=== PATIENT | female | born 1985 | race Hispanic/Latino ===

== ENCOUNTER 2021-11-05 17:08 | Emergency (ER) | payer BC, OTHER ==
--- OUTSIDE RECORDS SUMMARY | 2021-11-05 17:12 | XMS REPORT | Continuity of Care Document ---
:1985 Author Organization [facility] t Address [address] [place] [address] Dr. [address]. [address] [place] [address] Care Team Providers Name Role Phone Pcp, Patient Does Not Have A Primary Care Physician [id number] Garth Domínguez Attending Clinician Unavailable Nurse, Rohan Mariano [facility] Attending Clinician Unavailable Concetta Ahmadi MD Attending Clinician CONCETTA AHMADI Attending Clinician Unavailable Doctor Unassigned, [place] Attending Clinician Unavailable JENNIFER Attending Clinician Unavailable ProviderRohan Urgent Care Attending Clinician Unavailable Amy Marcelo Attending Clinician AMY POSADA Attending Clinician Unavailable Osiel Attending Clinician Unavailable JENNIFER Admitting Clinician Unavailable Osiel Admitting Clinician Unavailable Payers Payer Name Policy Type Policy Number Effective Date Expiration Date Jessica funes STARLA (EPO) [id number] 2020 00:00:00 [facility] [id number] 2018 00:00:00 Problems Condition Condition Condition Status Onset Resolution Last Treating Co mments Source Name Details Category Date Date Treatment Clinician Date Crohn's Crohn's Problem Active [place] disease Disease 06 da 00:00: Medical 00 Group No known No known Disease Unive rs active active ity of problems problems [facility] Allergies, Adverse Reactions, Alerts Allergy Allergy Status Severity Reaction(s) Onset Inactive Treating Comm ents Source Name Type Date Date Clinician Levoflox Drug Active Nausea Univers acin Allergy and/or 6-13 ity of Vomiting 00:00: [place] 00 Medical Branch Sulfa Drug Active Hives Univers (Sulfona Allergy 6-13 ity of mide 00:00: [place] Antibiot 00 Medical ics) Branch LEVOFLOX DRUG Active High N/V Univers ACIN INGREDI 6-13 ity of 00:00: [place] 00 Medical Branch SULFA Drug Active High Hives Univers (SULFONA Class 6-13 ity of MIDE 00:00: [place] ANTIBIOT 00 Medical ICS) Branch Sulfa Drug Active Hives Univers (Sulfona Allergy 6-13 ity of mide 00:00: [place] Antibiot 00 Medical ics) Branch Bactrim Allergy Active Hives [place] to [facility] substan Medical e Group Levaquin Allergy Active Nausea [place] [facility] Levaquin Adverse Active "severe" n/v C ommon Reaction [facility] NO KNOWN Drug Active Univers ALLERGIE Class ity of S [facility] Social History Social Habit Start Date Stop Date Quantity Comments Source History SDOH University o f Alcohol Frequency [facility] edical Branch History SDOH University o f Alcohol Std [place] [facility] Drinks Branch History [facility] University o f Alcohol Binge [place] Medic al Branch Exposure to 2021-10-26 2021-11-05 Not sure [facility] SARS-CoV-2 00:00:00 16:32:00 [facility] (event) [place] Alcohol intake 2021-11-05 2021-11-05 .43 /d University of 00:00:00 00:00:[address] [facility] Tobacco use and 2020-07-23 2020-07-23 Smokeless tobacco Un iversity of exposure 00:00:00 00:00:00 non-user [facility] Alcohol Comment 2020-07-23 2020-07-23 nightly Universit y of 00:00:00 00:00:[address] [facility] Sex Assigned At [birth year] Universit y of 00:00:00 00:00:[address] [facility] Smoking Status Start Date Stop Date Source Unknown if ever smoked Universit y of [facility] Never smoked tobacco [facility] Medications Ordered Filled Start Stop Current Ordering Indication Dosage Frequency Signature Comments Components Source Medication Medication Date Date Medication? Clinician (SIG) Name Name amitriptyli Yes [id number] 1-2 tab at Univers ne 25 mg 6-13 bedtime to ity o f tablet 00:00: relax [place] 00 muscles. Medical Branch acetaminoph Yes [id number] 2 - Uni vers en-codeine 6-13 tab Every ity of 300-30 mg 00:00: 4hrs as [place] tablet 00 needed for Medical pain or Branch cough requiring narcotic Indication s: acute pain amitriptyli Yes [id number] 1-2 tab at Univers ne 25 mg 6-13 bedtime to ity o f tablet 00:00: relax [place] 00 muscles. Medical Branch acetaminoph Yes 4647 02/11 Uni vers en-codeine 6-13 tab Every ity of 300-30 mg 00:00: 4hrs as [place] tablet 00 needed for Medical pain or Branch cough requiring narcotic Indication s: acute pain amitriptyli Yes [id number] 1-2 tab at Univers ne 25 mg 6-13 bedtime to ity o f tablet 00:00: relax [place] 00 muscles. Medical Branch acetaminoph Yes 4647 02/11 Uni vers en-codeine 6-13 tab Every ity of 300-30 mg 00:00: 4hrs as [place] tablet 00 needed for Medical pain or Branch cough requiring narcotic Indication s: acute pain valACYclovi 202- No [id number] 1000mg Take 2 Univers r 500 mg 6-13 06-21 tablets by ity of tablet 00:00: 04:59 mouth 3 [place] 00 :00 (three) Medical times Branch daily for 7 days. Fluticasone Fluticasone 2019-0 Yes Garth 1 Common Propionate Propionate 1-20 Domínguez applicatio Spirit 00:00: n - [facility] fluticasone fluticasone No fluticason [place] propionate propionate e da 0.005 % 0.005 % propionate Med ical topical topical 0.005 % Group ointment ointment topical ointment Mirena 20 Mirena 20 No 1device Mirena 20 [place] mcg/24 mcg/24 (s) mcg/24 da hours (6 hours (6 hours (6 Med ical yrs) 52 mg yrs) 52 mg yrs) 52 mg Group intrauterin intrauterin intrauteri e device e device ne device Take 1 Take 1 Take 1 device by device by device by intrauterin intrauterin intrauteri e route. e route. ne route. pantoprazol pantoprazol No pantoprazo [place] e 40 mg e 40 mg le 40 mg da tablet,carlos tablet,carlos tablet,del Medical yed release yed release ayed G roup TAKE 1 TAKE 1 release TABLET BY TABLET BY TAKE 1 MOUTH ONCE MOUTH ONCE TABLET BY DAILY FOR DAILY FOR MOUTH ONCE 30 DAYS 30 DAYS DAILY FOR 30 DAYS Vital Signs Vital Name Observation Time Observation Value Comments Source Diastolic blood 2021-11-05 21:15:00 100 mm[Hg] [facility] Body temperature 2021-11-05 21:15:00 37.83 Shy [facility] Systolic blood 2021-11-05 21:15:00 140 mm[facility]Hg] [facility] Heart rate 2021-11-05 21:14:00 95 /min [facility] Respiratory rate 2021-11-05 21:14:00 20 /min [facility] Body height 2021-11-05 21:14:00 157.5 cm [facility] Body weight 2021-11-05 21:14:00 67.586 kg [facility] BMI 2021-11-05 21:14:00 27.25 kg/m2 [facility] Oxygen saturation in 2021-11-05 21:14:00 100 /min [facility] Arterial blood by [facility] Pulse oximetry Branch Systolic blood 2020-07-23 18:06:00 126 mm[Hg] [facility] Diastolic blood 2020-07-23 18:06:00 86 mm[Hg] Unive [facility] Heart rate 2020-07-23 18:06:00 86 /min [facility] Body temperature 2020-07-23 18:06:00 37 Shy [facility] Respiratory rate 2020-07-23 18:06:00 18 /min [facility] Body height 2020-07-23 18:06:00 157.5 cm [facility] [place] Body weight 2020-07-23 18:06:00 68.266 kg [facility] BMI 2020-07-23 18:06:00 27.53 kg/m2 [facility] Oxygen saturation in 2020-07-23 18:06:00 97 /min University Arterial blood by [facility] Pulse oximetry Branch BP Diastolic 2020-03-08 00:00:00 82 mm[Hg] [facility] Height 2020-03-08 00:00:00 62 [in_i] [facility] BMI (Body Mass 2020-03-08 00:00:00 27.8 kg/m2 [facility] [employer] [facility]) Group BP Systolic 2020-03-08 00:00:00 114 mm[Hg] [facility] Body Weight 2020-03-08 00:00:00 152.2 [lb_av] [facility] Height 2019-12-08 00:00:00 62 [in_i] [facility] BMI (Body Mass 2019-12-08 00:00:00 28.7 kg/m2 [facility] [employer] [facility] Body Weight 2019-12-08 00:00:00 156.9 [lb_av] [facility] BP Diastolic 2019-11-24 00:00:00 80 mm[Hg] [facility] Height 2019-11-24 00:00:00 62 [in_i] [facility] BMI (Body Mass 2019-11-24 00:00:00 27.8 kg/m2 [facility] [employer] [facility] BP Systolic 2019-11-24 00:00:00 126 mm[Hg] [facility] Body Weight 2019-11-24 00:00:00 151.9 [lb_av] [facility] BP Diastolic 2019-02-22 00:00:00 87 mm[Hg] [facility] Height 2019-02-22 00:00:00 62 [in_i] [facility] BMI (Body Mass 2019-02-22 00:00:00 27.6 kg/m2 [facility] [employer] [facility] Group BP Systolic 2019-02-22 00:00:00 126 mm[Hg] [facility] Body Weight 2019-02-22 00:00:00 151 [lb_av] [facility] Height 2019-02-15 00:00:00 62 [in_i] [facility] BMI (Body Mass 2019-02-15 00:00:00 27.6 kg/m2 [facility] Body Weight 2019-02-15 00:00:00 151 [lb_av] [facility] Procedures Procedure Date / Time Performing Clinician Source Performed CONSENT/REFUSAL FOR 2021-11-05 20:59:37 Doctor Unassigned, No [facility] DIAGNOSIS AND TREATMENT Name Medical Branch ASSIGNMENT OF BENEFITS 2020-07-23 18:01:44 Doctor Unassigned, No [facility] Name Medical Branch US, transvaginal 2019-12-08 00:00:00 [facility] US, pelvis 2019-11-24 00:00:00 [facility] US, transvaginal 2019-11-24 00:00:00 [facility] US, transvaginal 2019-02-22 00:00:00 [facility] Encounters Start End Encounter Admission Attending Care Care Encounter Source Date/Time Date/Time Type Type Clinicians Facility Department ID 2021-03-07 Outpatient Domínguez, [facility] [id number] Common 14:26:50 Garth 20904 [facility] 2021-03-07 Outpatient Domínguez, [facility] [id number] Common 14:21:04 Garth 54125 [facility] 2021-03-07 [facility], [facility] [id number] Common 14:08:55 Garth 89805 [facility] 2021-03-07 Outpatient Domínguez, [facility] [id number] Common 14:08:03 Garth 67409 [facility] 2021-03-07 Outpatient [facility], [facility] [id number] Common 12:03:11 Garth 11462 [facility] 2021-03-07 Outpatient Domínguez, STLMLC STLMLC [id number] Common 12:02:57 Garth 44333 [facility] 2021-03-07 Outpatient Domínguez, STLMLC STLMLC [id number] Common 11:17:42 Garth 52221 [facility] 2021-03-07 Outpatient Domínguez, STLMLC STLMLC [id number] Common 11:01:12 Garth 33028 [facility] 2021-11-05 2021-11-05 Nurse Nurse, Rohan Mariano [facility] [id number] Univers 15:40:00 16:00:00 Visit [facility] [id number] ity [facility] [id number] Gómez as GEOVANY?BLEA [phone] [address] MEDICAL OFFICE BUILDING 2021-11-05 2021-11-05 Outpatient R [facility] [id number] Univers 15:40:00 15:40:00 [facility] 2021-11-05 2021-11-05 Orders Doctor NELLY [id number] Univers 00:00:00 00:00:00 Only Unassigned, [place] [id number] ity of [place] [facility] [id number] Gómez as [phone] [address] 2021-08-21 2021-08-21 Outpatient JENNIFER CURRY [facility] 703 [place] 05:01:00 05:01:00 HN 0712 da [facility] Outre h Program 2021-06-15 2021-06-15 ambulatory STLMLC STLMLC [id number] Common 00:00:00 00:00:00 [facility] 2021-06-05 2021-06-05 ambulatory STLMLC STLMLC [id number] Common 00:00:00 00:00:00 [facility] 2021-01-30 2021-01-30 ambulatory STLMLC STLMLC [id number] Common 00:00:00 00:00:00 [facility] 2021-01-08 2021-01-08 ambulatory STLMLC STLMLC [id number] Common 00:00:00 00:00:00 [facility] 2020-12-22 2020-12-22 Outpatient JENNIFER CURRY PATRICIO 703 [place] 11:33:00 11:33:00 HN 1112 da [facility] Outre h Program 2020-07-23 2020-07-23 Urgent Provider, Ang [facility] [id number] Univers 13:02:42 13:22:42 [facility] [id number] [facility] [id number] Gómez as Professio [id number] [address] Office [facility] 2020-07-23 2020-07-23 Outpatient Shaina POSADA [facility] [id number] Univers 13:00:00 13:00:00 [facility] 2020-07-23 2020-07-23 Orders Doctor NELLY [id number] [facility] 00:00:00 00:00:00 Only Unassigned, [place] [id number] ity [facility] [id number] Gómez as [id number] [address] 2020-04-01 2020-04-01 Outpatient Nick_L MMG MM [id number] [place] 01:03:00 01:03:00 0220 Medical Group 2020-03-08 2020-03-08 [place] Romero_[place]G [place] - [id number] 021 [place] 00:00:00 00:00:00 Milan Jurado 0127 Yg Perea MD: [address] [place] [address] [facility] [address], [place] [address] , Ph. [phone] 2020-02-26 2020-02-26 Outpatient Nick_L MMG MMG 5028 [place] 01:05:00 01:05:00 0116 [facility] 2020-01-22 2020-01-22 Outpatient Rutledge_L MMG MMG 5028 [place] 01:05:00 01:05:00 1212 [facility] 2019-12-29 2019-12-29 Outpatient Rutledge_L MMG MMG 5028 [place] 02:20:00 02:20:00 1118 [facility] 2019-12-20 2019-12-20 Outpatient STLMLC STLMLC [id number] Common 00:00:00 00:00:00 [facility] 2019-12-18 2019-12-18 Outpatient Rutledge_L MMG MMG 5028 [place] 01:05:00 01:05:00 1107 [facility] 2019-12-09 2019-12-09 Outpatient Rutledge_L MMG MMG 5028 [place] 10:50:00 10:50:00 1029 [facility] 2019-12-08 2019-12-08 Outpatient STLMLC STLMLC [id number] Common 00:00:00 00:00:00 [facility] 2019-12-08 2019-12-08 [place] Rutledge_[place] - [id number] 020 [place] 00:00:00 00:00:00 Milan Jurado 1028 mitzi Romero Medical Medicadin cintron MD: [address] [place], [place] [id number] , Ph. [phone] 2019-12-05 2019-12-05 Outpatient Rutledge_L MMG MMG 5028 [place] 03:25:00 03:25:00 1025 [facility] 2019-11-24 2019-11-24 Lo Rutledge_L MMG [place] - [id number] 020 [place] 00:00:00 00:00:00 Milan Jurado 1014 Yg Perea Medicadin cintron MD: [address] [id number] , Ph. [phone] 2019-10-29 2019-10-29 Outpatient Rutledge_L MMG MMG 5028 [place] 05:03:00 05:03:00 0918 da Medical Group 2019-04-23 2019-04-23 Outpatient Rutledge_L MMG MMG 5028 [place] 11:15:00 11:15:00 0313 Medical Group 2019-04-14 2019-04-14 Outpatient Rutledge_L MMG MMG 5028 [place] 10:38:00 10:38:00 0304 Medical Group 2019-03-16 2019-03-16 Outpatient Rutledge_L MMG MMG 5028 [place] 09:43:00 09:43:00 0204 Medical Group 2019-03-10 2019-03-10 Outpatient Rutledge_L MMG MMG 5028 [place] 12:06:00 12:06:00 0129 Medical Group 2019-03-01 2019-03-01 Outpatient [facility] [id number] Common 09:26:00 09:26:[address] [facility] it [address] [facility] 2019-02-25 2019-02-25 Outpatient [facility] [id number] Common 13:45:00 13:45:[address] [facility] it [facility] 2019-02-24 2019-02-24 Outpatient Rutledge_L MMG MMG 5028 [place] 12:04:00 12:04:00 0115 Medical Group 2019-02-22 2019-02-22 Lo Rutledge_L MMG [place] - [id number] 020 [place] 00:00:00 00:00:00 Milan Jurado 0113 mitzi Romero Medical Medicadin cintron MD: 600 [facility] [address], [place] [address] , Ph. [phone] 2019-02-16 2019-02-16 Outpatient Rutledge_L MMG MMG 5028 [place] 04:26:00 04:26:00 0107 Medical [facility] 2019-02-15 2019-02-15 Lo Rutledge_[place] MMG [place] - [id number] 020 [place] 00:00:00 00:00:00 Milan Jurado 0106 mitzi Romero Medical Medicadin cintron MD: 600 [facility] [address], [place] [address] , Ph. [phone] 2018-12-09 2018-12-09 Out[facility] [id number] Common 07:08:00 07:08:00 t [place] [employer] [address] it [address] [facility] 2018-11-30 2018-11-30 Outpatient [facility] [id number] Common 14:00:00 14:00:[address] [facility] 2018-10-01 2018-10-01 Outpatient [facility] [id number] Common 09:47:00 09:47:00 t Urgent Urgent Care S pirit Care [facility] 2018-09-28 2018-09-28 Outpatient [facility] [id number] Common 18:06:00 18:06:00 t Urgent Urgent Care S pirit Care [facility] 2018-09-28 2018-09-28 Outpatient [facility] [id number] Common 17:45:00 17:45:00 t Urgent Urgent Care S pirit Care [facility] 2018-09-15 2018-09-15 Outpatient [facility] [id number] Common 11:00:00 11:00:00 t [place] [employer] [address] it [address] [facility] 2017-11-26 2017-11-26 Outpatient [facility] [id number] Common 14:00:00 14:00:00 t [employer] [place] Sp[address] it Drive [facility] Results Test Description Test Time Test Comments Results Result Sour e Comments HIV 1+2 Ab 2019-02-15 HIV P24 [place] [Presence] in 03:30:00 AgHIV-1/2 Ab Medical G roup Serum Reagin Ab [Presence] in Serum by [facility] 2019-02-15 03:30:00 Test Item Value Reference Range Interpretation Comme nts Reagin Ab [Presence] in Serum by [facility] (test code = nonreactive nonr eactive 22945-2) [facility] GroupHepatitis B virus surface Ag [Presence] in Serum 2019-02-15 03:30:00 Test Item Value Reference Range Interpretation Comments .hepatitis B surface antigen (test negative negative code = .hepatitis B surface antigen) [facility]
[2021-11-05 18:38] LABS: Urine Blood Trace-intact (Negative); Urine Glucose Negative (Negative); Urine Protein Negative (Negative); Urine Specific Gravity 1.015 (1.005-1.030)
[2021-11-05] MEDS ORDERED: NA CHLORIDE 0.9% 1,000 ML ONE (18:40)
[2021-11-05 18:47] LABS: Urine Specific Gravity/Preg 1.015 (1.005-1.030)
[2021-11-05 19:12] LABS: Absolute Lymphocytes (CBC) 2.7 K/uL (0.7-4.9); Lymphocytes % 25.7 % (15.3-44.8); MCV 77.3 fL (80-100); MPV 8.4 fL (7.6-11.3); RBC Red Blood Cell Count 5.56 M/uL (3.86-4.86)
[2021-11-05 19:22] LABS: Potassium 3.5 mmol/L (3.5-5.1)
[2021-11-05] MEDS ORDERED: METOCLOPRAMIDE 10 MG/2mL INJ ONE (20:18)
[2021-11-05] MEDS ORDERED: NA CHLORIDE 0.9% 100 ML ONE (20:18)
[2021-11-05] MEDS ORDERED: DIPHENHYDRAMINE 50 MG/ML VIAL ONE (20:19)
--- NOTE | 2021-11-05 20:51 | RAD REPORT ---
EXAM DESCRIPTION: CT - Head Brain Wo Cont - 11/05/2021 8:35 pm CLINICAL HISTORY: Headache, sudden, severe COMPARISON: Head angio dated 11/05/2021 TECHNIQUE: Axial 5 mm thick images of the head were obtained without IV contrast. All CT scans are performed using dose optimization technique as appropriate and may include automated exposure control or mA/KV adjustment according to patient size. FINDINGS: No intracranial hemorrhage is present. There is a 2.5 centimeter diameter area of diminish ed attenuation in the medial inferior right cerebellum extending into the vermis. Evaluation of the b rainstem is limited. Posterior fossa assessment overall is limited. No midline shift. No focal cerebral abnormality. Ventricles are normal. No cortical edema or sulcal e ffacement. Delete select Mastoid air cells and visualized portions of the paranasal sinuses are clear. No acute bony findings. IMPRESSION: Proximally 2.5 centimeter area of decreased attenuation in the medial inferior right cer ebellum extending into the vermis. Subacute nonhemorrhagic infarction is favored over mass.
--- NOTE | 2021-11-05 20:56 | RAD REPORT ---
EXAM DESCRIPTION: CT - Neck Angio - 11/05/2021 8:35 pm CLINICAL HISTORY: neck pain right sided, occipital headache TECHNIQUE: During dynamic enhancement using nonionic IV contrast, axial 2 mm thick images of the nec k were obtained. Sagittal and axial reconstruction images were generated using MIP technique and revi ewed. All CT scans are performed using dose optimization technique as appropriate and may include automated exposure control or mA/KV adjustment according to patient size. COMPARISON: CT head same date FINDINGS: No aneurysm or vascular malformation identified. No carotid or left vertebral artery diss ection. Left vertebral artery is dominant. Irregular narrowing of the right vertebral artery is present from where the vertebral artery enters t he C6 transverse foramen extending superiorly to the C3 transverse foramen. Vertebral artery returns to a normal diameter approximately C3 level. The lumen is patent but narrowed and irregular at the in volved levels. No aortic arch or great vessel origin abnormality seen. Vertebral artery origins are unremarkable. 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 Lumen is patent but irr egular and narrowed.
--- NOTE | 2021-11-05 20:57 | RAD REPORT ---
EXAM DESCRIPTION: CT - Head angio - 11/05/2021 8:35 pm CLINICAL HISTORY: Headache, sudden, severe TECHNIQUE: During dynamic enhancement using nonionic IV contrast, axial 1 millimeter thick images of the head were obtained. Sagittal and axial reconstruction images were generated using MIP technique and reviewed. All CT scans are performed using dose optimization technique as appropriate and may include automated exposure control or mA/KV adjustment according to patient size. COMPARISON: CT head same date CT angio neck same date FINDINGS: No aneurysm or vascular malformation identified. Major venous sinuses are patent. No stenosis, named branch occlusion, vasculitis or other significant vascular finding identifiable. L eft vertebral artery is dominant. There is mild tortuosity of the vertebrobasilar vasculature. No bas ilar artery focal abnormality. IMPRESSION: Negative CT angio head examination.
[2021-11-05] MEDS ORDERED: LORazepam 2 MG/ML VIAL ONE (21:32)
[2021-11-05] MEDS ORDERED: ASPIRIN 325 MG TAB ONE (21:33)
--- NOTE | 2021-11-05 21:47 | EDPHYS ---
Physician Documentation [facility] Name: Sandie Urias Age: 36 yrs Sex: Female : 1985 Arrival Date: 11/05/2021 Time: 17:17 Bed 9 Private MD: Garth Domínguez ED Physician Phoebe Dasilva HPI: 11/05 19:54 This 36 yrs old Female presents to ER via Ambulatory with complaints of ms3 Headache, High Blood Pressure, Dizziness. 19:54 36-year-old female with past medical history of Crohn's disease presents for headache ms3 and right-sided neck pain that began on . Patient states she felt a "burst" in her neck and became dizzy. Patient states she went to [facility] ER was given Compazine and fluids that improved her symptoms and she was discharged. Patient states imaging was not performed at that time. Patient states she is currently having a 5/10 throbbing posterior headache associated with right-sided neck pain. Patient endorses nausea and vomiting. Patient states laying on her right side improves the discomfort. Patient denies inciting factors.. [employer]: 17:40 LMP 10/25/2021 jl7 Historical: - Allergies: 17:40 sulfamethoxazole-trimethoprim; jl7 - Home Meds: 17:40 Omeprazole Oral [Active]; Pentasa Oral [Active]; jl7 - PMHx: 17:40 Crohn's; jl7 - PSHx: 17:40 tummy tuck; 07/2021; jl7 - Immunization history:: Client reports receiving the 2nd dose of the Covid vaccine. - Social history:: Smoking status: Patient denies any tobacco usage or history of. Patient uses alcohol, on a daily basis. admits to "couple of beers" a day. ROS: 19:54 Constitutional: Negative for fever, and chills. Eyes: Negative for injury, pain, ms3 redness, and discharge. 19:54 Cardiovascular: Negative for chest pain, and palpitations. Respiratory: Negative for shortness of breath, cough, wheezing, and pleuritic chest pain, Abdomen/GI: Negative for abdominal pain, nausea, vomiting, diarrhea, and constipation, Back: Negative for injury and pain, MS/Extremity: Negative for injury and deformity, Skin: Negative for injury, rash, and discoloration. 19:54 Neck: Positive for Right sided neck pain. 19:54 Neuro: Positive for headache. 19:54 All other systems are negative. Exam: 19:54 Constitutional: This is a well developed, well nourished patient who is awake, alert, ms3 and in no acute distress. Head/Face: Normocephalic, atraumatic. Neck: Trachea midline, no cervical lymphadenopathy. Supple, full range of motion without nuchal rigidity, or vertebral point tenderness. No Meningismus. Chest/axilla: Normal chest wall appearance and motion. Nontender with no deformity. Cardiovascular: Regular rate and rhythm with a normal S1 and S2. No gallops, murmurs, or rubs. Normal PMI, no JVD. No pulse deficits. Respiratory: Lungs have equal breath sounds bilaterally, clear to auscultation and percussion. No rales, rhonchi or wheezes noted. No increased work of breathing, no retractions or nasal flaring. Abdomen/GI: Soft, non-tender, with normal bowel sounds. No distension or tympany. No guarding or rebound. No evidence of tenderness throughout. Skin: Warm, dry with normal turgor. Normal color with no rashes, no lesions, and no evidence of cellulitis. MS/ Extremity: Pulses equal, no cyanosis. Neurovascular intact. Full, normal range of motion. Neuro: Awake and alert, GCS 15, oriented to person, place, time, and situation. Cranial nerves II-XII grossly intact. Motor strength 5/5 in all extremities. Sensory grossly intact. Cerebellar exam normal. Normal gait. Vital Signs: 17:37 BP 160 / 106; Pulse 105; Resp 17; Temp 99; Pulse Ox 99% ; Weight 67.59 kg; Height 5 ft. jl7 2 in. (157.48 cm); Pain 5/10; 19:16 BP 136 / 99; Pulse 88; Resp 18; Pulse Ox 100% on R/A; oe 21:54 BP 147 / 88; Pulse 86; Resp 16; Pulse Ox 100% on R/A; bm7 22:45 BP 140 / 80; Pulse 82; Resp 16; Temp 98.1(TE); Pulse Ox 100% on R/A; ld1 17:37 Body Mass Index 27.25 (67.59 kg, 157.48 cm) jl7 MDM: 18:19 Patient medically screened. ms3 19:54 Transition of care: After a detail discussion of the patient's case, care is ms3 transferred to Phoebe Dasilva MD. 21:23 Data reviewed: vital signs, nurses notes, lab test result(s), radiologic studies. sd2 Counseling: I had a detailed discussion with the patient and/or guardian regarding: the historical points, exam findings, and any diagnostic results supporting the discharge/admit diagnosis, lab results, radiology results, the need to transfer to another facility, for higher level of care. 21:45 ED course: Spoke with Dr. Celestin, neuro ICU talent acquisition partner at [facility] in the [place] [id number] center, who accepts the patient for transfer. Recommends low threshold for repeat CT head if patient develops worsening headache or intractable vomiting due to high risk of hydrocephalus. Recommends giving mannitol 0.5-1 g/kg in this situation as well. Pt accepted for transfer pending COVID test results. . 11/05 18:22 Order name: CBC with Diff; Complete Time: 19:38 ms3 11/05 18:22 Order name: BMP; Complete Time: 19:38 ms3 11/05 18:22 Order name: CT Head Brain wo Cont; Complete Time: 20:58 ca3 11/05 18:38 Order name: Urine --Ancillary (enter results); Complete Time: 19:38 bd 11/05 18:38 Order name: Urine Dipstick-Ancillary; Complete Time: 19:38 EDMS 11/05 21:08 Order name: SARS RAPID; Complete Time: 21:50 sd2 11/05 18:22 Order name: CT Head Angio; Complete Time: 20:58 ms3 11/05 18:22 Order name: CT Neck Angio; Complete Time: 20:58 ca3 11/05 18:22 Order name: Urine Test (obtain specimen); Complete Time: 18:31 ms3 Administered Medications: 19:03 Drug: NS 0.9% 1000 ml Route: IV; Rate: 1000 ml; Site: right antecubital; bm7 22:47 Follow up: IV Status: Completed infusion; IV Intake: 1000ml ld1 20:22 Drug: Reglan (metoCLOPramide) 10 mg Route: IVP; Site: left antecubital; bm7 22:46 Follow up: Response: No adverse reaction ld1 20:22 Drug: Benadryl (diphenhydrAMINE) 25 mg Route: IVP; Site: left antecubital; bm7 22:46 Follow up: Response: No adverse reaction ld1 21:43 Drug: Ativan (LORazepam) 1 mg Route: IVP; Site: left antecubital; bm7 22:46 Follow up: Response: Anxiety decreased ld1 21:43 Drug: Aspirin 325 mg Route: PO; bm7 22:46 Follow up: Response: No adverse reaction ld1 Disposition Summary: 11/05/21 21:47 Transfer Ordered Transfer Location: [facility] sd2 Reason: Higher level of care sd2 Condition: Stable sd2 Problem: new sd2 Symptoms: have improved sd2 Accepting Physician: Dr. 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 Celestin sd2 ld1
--- NOTE | 2021-11-05 21:47 | ER ---
Nurse's Notes [facility] Name: Sandie Urias Age: 36 yrs Sex: Female : 1985 Arrival Date: 11/05/2021 Time: 17:17 Bed 9 Private MD: Garth Domínguez Diagnosis: Dissection of vertebral artery;Cerebellar stroke syndrome Presentation: 11/05 17:37 Chief complaint: Patient states: Started with right sided neck pain on Thrsday, felt jl7 like it popped and spread through the right side of my head, got dizzy, went to [place] ED and was treated for a migraine and I felt like I was having a stroke, reports continued PRASAD, intermittent dizziness with intermittent heaviness in right arm. Coronavirus screen: At this time, the client does not indicate any symptoms associated with coronavirus-19. Ebola Screen: No symptoms or risks identified at this time. Initial Sepsis Screen: Does the patient meet any 2 criteria? No. Patient's initial sepsis screen is negative. Does the patient have a suspected source of infection? No. Patient's initial sepsis screen is negative. Risk Assessment: Do you want to hurt yourself or someone else? Patient reports no desire to harm self or others. Onset of symptoms was November 01, 2021. Care prior to arrival: None. 17:37 Method Of Arrival: Ambulatory [facility] 17:37 Acuity: ODILIA 3 jl7 Triage Assessment: 17:40 Headache History: Denies prior headaches. General: Appears in no apparent distress. jl7 uncomfortable, Behavior is cooperative, appropriate for age, anxious. Pain: Complains of pain in right orthodox, left frontal area and left temporal area Pain currently is 5 out of 10 on a pain scale. Pain began 2-3 days ago. Also complains of no other associated symptoms. Neuro: Level of Consciousness is awake, alert, obeys commands, Oriented to person, place, time, situation. 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 - Social history:: Smoking status: Patient denies any tobacco usage or history of. Patient uses alcohol, on a daily basis. admits to "couple of beers" a day. Screenin:15 Abuse screen: Denies threats or abuse. Nutritional screening: No deficits noted. bm7 Tuberculosis screening: No symptoms or risk factors identified. Fall Risk None identified. Assessment: 18:15 Reassessment: No changes from previously documented assessment. Patient and/or family bm7 updated on plan of care and expected duration. Pain level reassessed. Patient is alert, oriented x 3, equal unlabored respirations, skin warm/dry/pink. 19:52 Reassessment: Patient and/or family updated on plan of care and expected duration. Pain bm7 level reassessed. Patient is alert, oriented x 3, equal unlabored respirations, skin warm/dry/pink. Vital Signs: 17:37 BP 160 / 106; Pulse 105; Resp 17; Temp 99; Pulse Ox 99% ; Weight 67.59 kg; Height 5 ft. jl7 2 in. (157.48 cm); Pain 5/10; 19:16 BP 136 / 99; Pulse 88; Resp 18; Pulse Ox 100% on R/A; oe 21:54 BP 147 / 88; Pulse 86; Resp 16; Pulse Ox 100% on R/A; bm7 22:45 BP 140 / 80; Pulse 82; Resp 16; Temp 98.1(TE); Pulse Ox 100% on R/A; ld1 17:37 Body Mass Index 27.25 (67.59 kg, 157.48 cm) jl7 Vitals: 22:45 Cardiac Rhythm Assessment. ld1 ED Course: 17:17 Patient arrived in ED. am2 17:18 Garth Domínguez DO is Private Physician. am2 17:40 Triage completed. jl7 17:40 Arm band placed on right wrist. jl7 17:41 Aj Jackson DO is Attending Physician. ms3 18:15 Tammi Mckeon, ALBERT is Primary Nurse. bm7 18:15 Patient has correct armband on for positive identification. Bed in low position. Call bm7 light in reach. Adult w/ patient. Client placed on continuous cardiac and pulse oximetry monitoring. NIBP monitoring applied. Warm blanket given. 18:15 No provider procedures requiring assistance completed. Patient maintains SpO2 bm7 saturation greater than 95% on room air. 20:01 Inserted saline lock: 22 gauge in right antecubital area, using aseptic technique. ds4 20:02 Attending Physician role handed off by Aj Jackson DO ms3 20:02 Phoebe Dasilva MD is Attending Physician. ms3 20:37 CT Head Brain wo Cont In Process Unspecified. EDMS 20:37 CT Head Angio In Process Unspecified. EDMS 20:37 CT Neck Angio In Process Unspecified. EDMS 21:[address] [facility], spoke with Iesha Sebastian. wm 21:28 SARS RAPID Sent. vc1 21:57 Pt accepted for transfer by Dr. Sara Celestin \\[id number]\\[id number] per Iesha Sebastian. wm 22:44 Assisted to bathroom. ld1 22:44 Initial lab(s) drawn, by mi, sent to lab. IV discontinued, intact, bleeding controlled, ld1 No redness/swelling at site. Pressure dressing applied. 22:45 Report given to ALBERT Lyn. ld1 Administered Medications: 19:03 Drug: NS 0.9% 1000 ml Route: IV; Rate: 1000 ml; Site: right antecubital; bm7 22:47 Follow up: IV Status: Completed infusion; IV Intake: 1000ml ld1 20:22 Drug: Reglan (metoCLOPramide) 10 mg Route: IVP; Site: left antecubital; bm7 22:46 Follow up: Response: No adverse reaction ld1 20:22 Drug: Benadryl (diphenhydrAMINE) 25 mg Route: IVP; Site: left antecubital; bm7 22:46 Follow up: Response: No adverse reaction ld1 21:43 Drug: Ativan (LORazepam) 1 mg Route: IVP; Site: left antecubital; bm7 22:46 Follow up: Response: Anxiety decreased ld1 21:43 Drug: Aspirin 325 mg Route: PO; bm7 22:46 Follow up: Response: No adverse reaction ld1 Medication: 18:15 VIS not applicable for this client. bm7 Intake: 22:47 IV: 1000ml; Total: 1000ml. ld1 Outcome: 21:47 ER care complete, transfer ordered by . sd2 22:43 [address] by ground EMS to [facility], Transfer form completed. ld1 22:43 Condition: stable 22:43 Discharge instructions given to patient, Instructed on the need for transfer, Demonstrated understanding of 22:47 Patient left the ED. ld1 Signatures: Dispatcher [employer] EDMS Rahul Grace ds4 Michael Patel Jahala, RN RN jl7 Arabella Gutierrez am2 Aj Jackson DO DO ms3 Tammi Mckeon, RN RN bm7 Romana Lopez RN RN ld1 Ericka Maloney Vanessa, RN RN vc1 Phoebe Dasilva MD MD sd2
[2021-11-05 21:48] LABS: SARS-CoV-2 Antigen Rapid Res Negative (Negative)
== END 2021-11-05 22:47 | disposition short-term general hospital (02) ==
LOC: ER 17:08
DX: I77.74 Dissection of vertebral artery (principal); G46.4 Cerebellar stroke syndrome; Z20.822 Contact with and (suspected) exposure to COVID-19; Z88.2 Allergy status to sulfonamides
CPT/HCPCS: 85025; 80048; 36415; 81025; 81003; 70450; 70496; 70498; 87811; Q9967; J2765; J1200; J7030; 96361; 96374; 96375; 99285